=== PATIENT | male | born 1960 | race Caucasian/White ===

== ENCOUNTER → 2017-04-08 | Outpatient (CLI) | payer MEDICARE, OTHER ==
[~2017-04-08] MED LIST: AMLO-511 PO; ATOR40TA28 PO; HYDR-3965 PO; LORA1TAB3 PO; OMEP20 PO; PHOSLOC PO
== END | disposition home or self-care (01) ==
LOC: RADPV 14:04
PROVIDERS: ATTEND Internal Medicine Geriatric Medicine
DX: J84.89 Other specified interstitial pulmonary diseases (principal); I51.7 Cardiomegaly; J44.9 Chronic obstructive pulmonary disease, unspecified; N18.6 End stage renal disease
CPT/HCPCS: 71020

== ENCOUNTER → 2018-07-16 | Outpatient (CLI) | payer MEDICARE, OTHER ==
[~2018-07-16] MED LIST changes: +ACET-2247 PO; +ALPR0.255 PO; -AMLO-511 PO; +AMLO-512 PO; -ATOR40TA28 PO; +AUD NEB; +BISA10S PR; +BUME1TAB17 PO; +DSS100 PO; +EPOE10003 SQ; +FOLI1CAP2 PO; +GABA-531 PO; +HYDR-309 PO; -HYDR-3965 PO; +HYDR10TA31 IVP; +HYDR10TA31 PO; +IPRNEB NEB; +LORA0.5T2 PO; -LORA1TAB3 PO; +METO-558 PO; +MORP2SYR IVP; -OMEP20 PO; +ONDA4 IVP; +PANT40TA25 PO; -PHOSLOC PO; +ROPI1TAB11 PO; +SEVEC800 PO; +ZOLP5 PO; +[UNRECOGNIZED DRUG - CODE] IVP
== END | disposition home or self-care (01) ==
LOC: RADPV 10:49
PROVIDERS: ATTEND Hospitalist
DX: R76.11 Nonspecific reaction to tuberculin skin test without active tuberculosis (principal); I70.0 Atherosclerosis of aorta; I11.9 Hypertensive heart disease without heart failure

== ENCOUNTER → 2018-07-27 | Outpatient (CLI) | payer MEDICARE, OTHER | END | disposition home or self-care (01) | LOC: RADPV 09:46 | PROVIDERS: ATTEND Podiatrist Foot & Ankle Surgery | DX: M72.2 Plantar fascial fibromatosis (principal) ==

== ENCOUNTER 2018-09-02 22:04 | Emergency (ER) | payer MEDICARE, OTHER ==
[~2018-09-02] VITALS: Ht 162.6 cm; Wt 64.0 kg
[2018-09-02 22:30] LABS: HEMATOCRIT 43.1 % (41-53); HEMOGLOBIN 14.2 g/dL (13.5-17.5); LYMPHOCYTES # (AUTO) 1.5 K/uL (1.0-4.8); MEAN CORPUSCULAR HGB CONC 32.9 G/dL (31.0-37.0); NEUTROPHILS # (AUTO) 3.1 K/uL (1.8-7.7)
[2018-09-02 22:34] LABS: BASOPHILS % (AUTO) 0.8 % (0.0-2.0); MEAN CORPUSCULAR HEMOGLOBIN 32.1 pg (26.0-34.0); MEAN CORPUSCULAR VOLUME 98 fL (80-100); MONOCYTES # (AUTO) 0.9 K/uL (0.1-1.0); MONOCYTES % (AUTO) 14.6 % (2.0-9.0); NEUTROPHILS % (AUTO) 52.6 % (40.0-70.0); RED BLOOD CELL COUNT(AUTO) 4.42 MIL/uL (4.50-5.90); RED CELL DISTRIBUTION WIDTH 16.4 % (11.5-14.5)
[2018-09-02 22:46] LABS: CALCIUM, TOTAL 10.1 mg/dL (8.8-10.5); CREATININE 5.47 mg/dL (0.60-1.30); POTASSIUM 3.4 mmol/L (3.5-5.1)
[2018-09-02 22:50] LABS: ALBUMIN 4.2 g/dL (3.4-5.0); BILIRUBIN,TOTAL 0.8 mg/dL (0.1-1.0); TOTAL PROTEIN, SERUM 8.9 g/dL (6.4-8.2)
[2018-09-02 23:23] LABS: PLATELET COUNT (AUTO) 66 K/uL (150-450); PLATELET MORPHOLOGY COMMENT GIANT PLTS PRESENT
[2018-09-02] MEDS ORDERED: HYDROCODONE/ACETAMINOPHEN 5-325 MG TABLET PO ONE (23:45)
[2018-09-02] MEDS ORDERED: ONDANSETRON HCL 4 MG TABLET PO ONE (23:45)
[2018-09-03 02:19] VITALS: BP 140/75
== END 2018-09-03 03:00 | disposition home or self-care (01) ==
LOC: EMS 22:04
DX: R10.13 Epigastric pain (principal); R10.31 Right lower quadrant pain; R10.32 Left lower quadrant pain; R11.2 Nausea with vomiting, unspecified; E78.00 Pure hypercholesterolemia, unspecified; I10 Essential (primary) hypertension; Z99.2 Dependence on renal dialysis; Z79.899 Other long term (current) drug therapy
CPT/HCPCS: 74176; 80053; 83690; 85025; 99284; Q0162

== ENCOUNTER → 2018-12-03 | Outpatient (CLI) | payer MEDICARE, OTHER ==
[~2018-12-03] MED LIST changes: -ACET-2247 PO; -ALPR0.255 PO; -AMLO-512 PO; +AMLO10TA7 PO; -BISA10S PR; -BUME1TAB17 PO; -DSS100 PO; -EPOE10003 SQ; -FOLI1CAP2 PO; -GABA-531 PO; -HYDR-309 PO; -HYDR10TA31 IVP; -HYDR10TA31 PO; -LORA0.5T2 PO; -MORP2SYR IVP; -ONDA4 IVP; -PANT40TA25 PO; -SEVEC800 PO; -ZOLP5 PO; -[UNRECOGNIZED DRUG - CODE] IVP
== END | disposition home or self-care (01) ==
LOC: LABPV 12:00
PROVIDERS: ATTEND Hospitalist
DX: R76.11 Nonspecific reaction to tuberculin skin test without active tuberculosis (principal)
CPT/HCPCS: 86480

== ENCOUNTER → 2019-01-28 | Outpatient (CLI) | payer MEDICARE, OTHER | END | disposition home or self-care (01) | LOC: RADPV 12:14 | PROVIDERS: ATTEND Hospitalist | DX: I70.0 Atherosclerosis of aorta (principal); J98.11 Atelectasis; I51.7 Cardiomegaly ==

== ENCOUNTER 2019-03-05 03:19 | Emergency (ER) | payer MEDICARE, OTHER | END 2019-03-05 03:25 | disposition left against medical advice (07) | LOC: EMS 03:19 | DX: T78.40XA Allergy, unspecified, initial encounter (principal); Z53.21 Procedure and treatment not carried out due to patient leaving prior to being seen by health care provider; Y92.89 Other specified places as the place of occurrence of the external cause ==

== ENCOUNTER → 2019-03-17 | Outpatient (CLI) | payer MEDICARE, OTHER | END | disposition home or self-care (01) | LOC: RADPV 15:38 | PROVIDERS: ATTEND Hospitalist | DX: I07.1 Rheumatic tricuspid insufficiency (principal) | CPT/HCPCS: 93306 ==

== ENCOUNTER → 2019-07-08 | Outpatient (CLI) | payer MEDICARE, OTHER ==
[~2019-07-08] MED LIST changes: -ROPI1TAB11 PO; +ROPI1TAB13 PO
== END | disposition home or self-care (01) ==
LOC: RADPV 14:22
PROVIDERS: ATTEND Hospitalist
DX: R76.11 Nonspecific reaction to tuberculin skin test without active tuberculosis (principal); R06.00 Dyspnea, unspecified; I70.0 Atherosclerosis of aorta